=== PATIENT | male | born 2005 | race Caucasian/White ===

== ENCOUNTER 2023-11-15 13:16 | Emergency (ER) | payer OTHER, SELFPAY ==
[2023-11-15 13:24] VITALS: BP 147/71
[2023-11-15 14:30] VITALS: BMI 23.6
--- NOTE | 2023-11-15 15:08 | EDRN ---
[facility] A[facility] currently at the pts bedside
[2023-11-15 16:35] VITALS: BP 115/67
--- NOTE | 2023-11-15 17:12 | ED.GENMED ---
History of Present Illness
General
Chief Complaint: Headache
Source: patient
Exam Limitations: none
Time Seen by Provider: 11/15/23 15:03
Nursing documentation reviewed up to this point in time: agreed with
History of Present Illness
History of Present Illness:
Patient states he was on a trampoline and hit on jaw by friends knee. No LOC. Incident occurred on Saturday. Over the past few days he reports FENG, dizziness. Brought to ED by father for eval.
Past History
Past History
ED Past Medical History: None
Review of Systems
Review of Systems
Allergies reviewed?: Yes
All Other Systems: ROS reviewed and negative except as documented in HPI and ROS
Constitutional: Reports no symptoms
ABD/GI: Reports no symptoms
Musculoskeletal: Reports no symptoms
Skin: Reports no symptoms
Neurological: Reports dizzy and headache
Psychiatric: Reports no symptoms
Phy Exam
General Physical Exam
General Presentation: well appearing and no apparent distress
General age: appears stated age
General Skin: warm and dry
General Habitus: normal
General Mental: alert
ENT Exam
ENT Exam: EOMI and TM's normal
Eye Exam
Eye Exam: PERRL and EOMI
Neurological Exam
Neurological Exam: alert, oriented x3, CN II-XII intact, no motor deficits, no sensory deficits, speech normal and normal gait
Louise Coma Scale
Eye Opening: Spontaneous
Verbal Response: Oriented
Motor Response: Obeys Commands
GCS Total Score: 15
Mental
Mental Status: oriented to person, oriented to place, oriented to time and usual mental status
Cranial
Cranial Nerves: normal
EOM (CN3/4/6): intact
Motor
Seizure Activity: none
Gait: normal
Tremors: none
Right upper extremity: 4
Right lower extremity: 4
Left upper extremity: 4
Left lower extremity: 4
Bilateral upper extremities: 4
Bilateral lower extremities: 4
Sensory
Sensory Exam: intact
Cerebellar
Cerebellar Function: normal finger to nose, normal heel to larose and normal Romberg test
Musculoskeletal Exam
Musculoskeletal Exam: full ROM and neuro vasc intact
Skin Exam
Skin Exam: normal color, warm/dry and no rash
Psychiatric Exam
Psychiatric Exam: normal mood/affect
Course
Orders/Labs/Results
Orders:
Orders
11/15/23 15:17
CT Head W/o Iv Contrast Urgent
Comment:
Reason For Exam: Trauma
Vital Signs
Initial and Last Documented VS:
Initial Vital Signs
Temp Pulse Resp BP Pulse Ox
98.5 F 69 16 147/71 100
11/15/23 13:24 11/15/23 13:24 11/15/23 13:24 11/15/23 13:24 11/15/23 13:24
Last Documented Vital Signs
Temp Pulse Resp BP Pulse Ox
97.5 F 76 16 115/67 99
11/15/23 16:35 11/15/23 16:35 11/15/23 16:35 11/15/23 16:35 11/15/23 16:35
*Radiology
Radiology exam reviewed: radiology read reviewed
*Pulse Oximetry
Patient hypoxic: no
*Critical Care Note
Total Time (30-74mins, 75-104mins- exclusive of procedures): Not Applicable
ED Attending Note
-
Portions of this chart may have been created with voice recognition software.� Occasional wrong word or��sound alike� substitutions may have occurred due to the inherent limitations of voice recognition software.
Discharge Plan
Departure
Patient Disposition: Home (Routine Discharge)
Date of Disposition: 11/15/23
Time of Disposition: 17:10
Patient with high blood pressure during this ER visit?: No
Condition: Good
Covid-19: Not Applicable
Discharge Problem:
Head injury
Instructions: Concussion in adults, Head injury in adults
Prescriptions:
No Action
No Current Medications
0
Referrals:
Eric Grewal MD [Active] - (Follow up if your symptoms do not improve over the next week.)
UNKNOWN - PT DOES,NOT KNOW [Family Provider] -
Stand Alone Forms: Return to Work
Interventions
Interventions:
*Risk Screen - Suicide Last Done: 11/15/23 13:24
*General Assessment Last Done: 11/15/23 13:24
*Neglect/Abuse Screening Last Done: 11/15/23 13:24
ED- Fall Risk Assessment Last Done: 11/15/23 14:30
*ED COVID-19 Vaccine History Last Done: 11/15/23 14:30
ED- Neurological Assessment Last Done: 11/15/23 14:30
Discharge Date and Time
Print Language: TUVALU[place]
== END 2023-11-15 17:19 | disposition home or self-care (01) ==
LOC: EMR 13:16
PROVIDERS: EMERGENCY PHYSICIAN Emergency Medicine
DX: S09.90XA Unspecified injury of head, initial encounter (principal); Y93.44 Activity, trampolining
CPT/HCPCS: 99284; 70450